=== PATIENT | female | born 1975 | race African-American/Black ===

== ENCOUNTER 2017-07-21 06:35 | Emergency (ER) | payer MEDICAID ==
[~2017-07-21] VITALS: Ht 157.5 cm; Wt 70.0 kg
[~2017-07-21 06:35] MED LIST: ATEN50TA PO; PROT40TA PO
[2017-07-21 06:43] VITALS: BP 134/80; PULSE 66; RESP 18; TEMP 98; O2SAT 100
[2017-07-21] MEDS ORDERED: ALPR.5 PO (06:51)
[2017-07-21] MEDS ORDERED: LAMO100 PO (06:51)
[2017-07-21] MEDS ORDERED: LURA40 PO (06:51)
[2017-07-21] MEDS ORDERED: ZANT150T2 PO (06:51)
[2017-07-21] MEDS ORDERED: SODIUM CHLOR 0.9% 1000 ML INJ 1,000 ML IV SCH (07:03)
--- NOTE | 2017-07-21 07:09 | PD ---
HPI Chief Complaint: Abdominal Pain Time Seen by Provider: 06:57 Travel History International Travel<30 days: No Contact w/Intl Traveler<30days: No Traveled to known affect area: No History of Present Illness HPI Patient is a 42-year-old female presents to emergency room with complaints of abdominal pain. Patient reports that for the past week, she's been having diffuse abdominal pain, reports that she initially had nausea and vomiting with the symptoms, reports that last night, she began to have diarrhea. Patient denies any fevers or chills, denies any sick contacts. Patient reports no recent travels. Patient reports that she has history of diverticulitis in the past. Patient denies any vaginal discharge or bleeding, dysuria, urinary urgency or frequency. PFSH Past Medical History Hx Anticoagulant Therapy: No ADHD: Yes Arthritis: Yes (RA) Autoimmune Disease: Yes (LUPUS) Bipolar Disorder: Yes Anxiety: Yes Depression: Yes Heart Rhythm Problems: No Cancer: Yes (DOESNT KNOW WHAT KIND SAYS NECK) Cardiac Catheterization: Yes Cardiovascular Problems: Yes ([place] 2009) High Cholesterol: No Chest Pain: No Congestive Heart Failure: No Coronary Artery Disease: Yes Diabetes: No Diminished Hearing: No Endocrine: Yes Fibromyalgia: Yes Gastrointestinal Disorders: No Genitourinary: No Hypertension: Yes Immune Disorder: Yes (LUPUS) Implanted Vascular Access Dvce: Yes Musculoskeletal: No Neurologic: No Psychiatric: Yes Respiratory: No Immunizations Current: Yes Myocardial Infarction: Yes (2009) Thyroid Disease: Yes Ulcer: Yes Tetanus Vaccination: Unknown Influenza Vaccination: Yes ?: Not Menopausal: No : 5 Para: 3 Miscarriage: 2 Ovarian Cysts: Yes Tubal Ligation: Yes Past Surgical History Abdominal Surgery: Yes (GASTRIC BYPASS) Body Medical Devices: HEART STENT Coronary Stent: Yes (X1) Hysterectomy: Yes Other Surgery: Yes (GASTRIC BYPASS) Social History Alcohol Use: No Tobacco Use: Yes Substance Use: Yes (marijuana ) Allergies-Medications (Allergen,Severity, Reaction): Coded Allergies: latex (Unverified Allergy, Severe, Anaphylaxis, 05/28/17) tramadol (Unverified Allergy, Severe, "throat closes", 05/28/17) lisinopril (Unverified Allergy, Mild, Hives, 05/28/17) metronidazole (Unverified Allergy, Mild, N&V, 05/28/17) morphine (Unverified Allergy, Mild, Seizure, 05/28/17) Reported Meds & Prescriptions Reported Meds & Active Scripts Active Percocet (Oxycodone-Acetaminophen) 5-325 mg Tab 1 Tab PO Q6H PRN Reported Latuda (Lurasidone) 40 Mg Tab 40 Mg PO DAILY Xanax (Alprazolam) 0.5 Mg Tab 0.5 Mg PO Q8H PRN Lamictal (Lamotrigine) 100 Mg Tab 100 Mg PO DAILY Zantac (Ranitidine HCl) 150 Mg Tab 150 Mg PO DAILY Atenolol 50 Mg Tab 50 Mg PO DAILY Review of Systems General / Constitutional: No: Fever Eyes: No: Visual changes HENT: No: Headaches Cardiovascular: No: Chest Pain or Discomfort Respiratory: No: Shortness of Breath Gastrointestinal: Positive: Nausea, Vomiting, Diarrhea, Abdominal Pain Genitourinary: No: Urgency, Frequency, Dysuria, Hesitancy, Pelvic Pain, Flank Pain, Dyspareunia Musculoskeletal: No: Pain Skin: No Rash Neurologic: No: Weakness Psychiatric: No: Depression Endocrine: No: Polydipsia Hematologic/Lymphatic: No: Easy Bruising Physical Exam Narrative GENERAL: Mild distress SKIN: Focused skin assessment warm/dry. HEAD: Atraumatic. Normocephalic. EYES: Pupils equal and round. No scleral icterus. No injection or drainage. ENT: No nasal bleeding or discharge. Mucous membranes pink and moist. NECK: Trachea midline. No JVD. CARDIOVASCULAR: Regular rate and rhythm. No murmur appreciated. RESPIRATORY: No accessory muscle use. Clear to auscultation. Breath sounds equal bilaterally. GASTROINTESTINAL: Abdomen soft, diffusely tender, nondistended. Hepatic and splenic margins not palpable. MUSCULOSKELETAL: No obvious deformities. No clubbing. No cyanosis. No edema. NEUROLOGICAL: Awake and alert. No obvious cranial nerve deficits. Motor grossly within normal limits. Normal speech. PSYCHIATRIC: Appropriate mood and affect; insight and judgment normal. Data Data Last Documented VS Vital Signs Date Time Temp Pulse Resp B/P (MAP) Pulse Ox O2 Delivery O2 Flow Rate FiO2 07/21/17 07:15 99 Room Air 07/21/17 07:15 64 16 128/78 (95) 07/21/17 06:43 98.0 Orders Orders Complete Blood Count With Diff (07/21/17 07:03) Comprehensive Metabolic Panel (07/21/17 07:03) Lipase (07/21/17 07:03) Prothrombin Time / Inr (Pt) (07/21/17 07:03) Act Partial Throm Time (Ptt) (07/21/17 07:03) Urinalysis - C+S If Indicated (07/21/17 07:03) Ct Abd/Pel W Iv Contrast(Rout) (07/21/17 07:03) Iv Access Insert/Monitor (07/21/17 07:03) Ecg Monitoring (07/21/17 07:03) Oximetry (07/21/17 07:03) NPO (07/21/17 07:03) Ondansetron Inj (Zofran Inj) (07/21/17 07:15) Sodium Chlor 0.9% 1000 Ml Inj (Ns 1000 M (07/21/17 07:03) Sodium Chloride 0.9% Flush (Ns Flush) (07/21/17 07:15) Ed Urine Pregnancytest Poc (07/21/17 07:03) Acetaminophen (Tylenol) (07/21/17 07:30) Oxycodone (Roxicodone) (07/21/17 07:45) Iohexol 350 Inj (Omnipaque 350 Inj) (07/21/17 10:09) Hydromorphone Pf Inj (Dilaudid Pf Inj) (07/21/17 11:15) Us Pelvis Comp W Dop Transvag (07/21/17 11:18) Labs Laboratory Tests Test 07/21/17 07:25 07/21/17 07:40 07/21/17 09:03 White Blood Count 6.6 TH/MM3 Red Blood Count 3.59 MIL/MM3 Hemoglobin 11.8 GM/DL Hematocrit 34.6 % Mean Corpuscular Volume 96.2 FL Mean Corpuscular Hemoglobin 33.0 PG Mean Corpuscular Hemoglobin Concent 34.3 % Red Cell Distribution Width 12.8 % Platelet Count 263 TH/MM3 Mean Platelet Volume 9.4 FL Neutrophils (%) (Auto) 68.9 % Lymphocytes (%) (Auto) 23.1 % Monocytes (%) (Auto) 6.6 % Eosinophils (%) (Auto) 0.2 % Basophils (%) (Auto) 1.2 % Neutrophils # (Auto) 4.6 TH/MM3 Lymphocytes # (Auto) 1.5 TH/MM3 Monocytes # (Auto) 0.4 TH/MM3 Eosinophils # (Auto) 0.0 TH/MM3 Basophils # (Auto) 0.1 TH/MM3 CBC Comment DIFF FINAL Differential Comment Prothrombin Time 10.1 SEC Prothromb Time International Ratio 0.9 RATIO Activated Partial Thromboplast Time 27.6 SEC Urine Color YELLOW Urine Turbidity CLEAR Urine pH 7.5 Urine Specific [place] 1.027 Urine Protein TRACE mg/dL Urine Glucose (UA) NEG mg/dL Urine Ketones NEG mg/dL Urine Occult Blood NEG Urine Nitrite NEG Urine Bilirubin NEG Urine Urobilinogen LESS THAN 2.0 MG/DL Urine Leukocyte Esterase NEG Urine RBC LESS THAN 1 /hpf Urine WBC 1 /hpf Urine Squamous Epithelial Cells 4 /hpf Urine Mucus FEW /lpf Microscopic Urinalysis Comment CULT NOT INDICATED Blood Urea Nitrogen 10 MG/DL Creatinine 0.59 MG/DL Random Glucose 93 MG/DL Total Protein 7.1 GM/DL Albumin 3.6 GM/DL Calcium Level 8.4 MG/DL Alkaline Phosphatase 107 U/L Aspartate Amino Transf (AST/SGOT) 18 U/L Alanine Aminotransferase (ALT/SGPT) 18 U/L Total Bilirubin 0.3 MG/DL Sodium Level 138 MEQ/L Potassium Level 4.4 MEQ/L Chloride Level 108 MEQ/L Carbon Dioxide Level 24.3 MEQ/L Anion Gap 6 MEQ/L Estimat Glomerular Filtration Rate 137 ML/MIN Lipase 912 U/L MDM Medical Decision Making Medical Screen Exam Complete: Yes Emergency Medical Condition: Yes Medical Record Reviewed: Yes Interpretation(s) Vital Signs Date Time Temp Pulse Resp B/P (MAP) Pulse Ox O2 Delivery O2 Flow Rate FiO2 07/21/17 06:43 98.0 66 18 134/80 (98) 100 Differential Diagnosis Differential includes diverticulitis, colitis, gastroenteritis, gastritis, electrolyte abnormality, UTI Narrative Course 42-year-old female who presents to emergency room with complaints of diffuse abdominal pain which has been ongoing for the past week. She reports associated nausea, vomiting and diarrhea with her symptoms. Patient with no fevers or chills. Patient was placed on a pvc monitor upon arrival to emergency room. Lab work including liver function tests, UA ordered. CT of the abdomen pelvis ordered to evaluate for possible colitis versus diverticulitis. Laboratory Tests Test 07/21/17 07:25 07/21/17 07:40 07/21/17 09:03 White Blood Count 6.6 TH/MM3 (4.0-11.0) Red Blood Count 3.59 MIL/MM3 (4.00-5.30) Hemoglobin 11.8 GM/DL (11.6-15.3) Hematocrit 34.6 % (35.0-46.0) Mean Corpuscular Volume 96.2 FL (80.0-100.0) Mean Corpuscular Hemoglobin 33.0 PG (27.0-34.0) Mean Corpuscular Hemoglobin Concent 34.3 % (32.0-36.0) Red Cell Distribution Width 12.8 % (11.6-17.2) Platelet Count 263 TH/MM3 (150-450) Mean Platelet Volume 9.4 FL (7.0-11.0) Neutrophils (%) (Auto) 68.9 % (16.0-70.0) Lymphocytes (%) (Auto) 23.1 % (9.0-44.0) Monocytes (%) (Auto) 6.6 % (0.0-8.0) Eosinophils (%) (Auto) 0.2 % (0.0-4.0) Basophils (%) (Auto) 1.2 % (0.0-2.0) Neutrophils # (Auto) 4.6 TH/MM3 (1.8-7.7) Lymphocytes # (Auto) 1.5 TH/MM3 (1.0-4.8) Monocytes # (Auto) 0.4 TH/MM3 (0-0.9) Eosinophils # (Auto) 0.0 TH/MM3 (0-0.4) Basophils # (Auto) 0.1 TH/MM3 (0-0.2) CBC Comment DIFF FINAL Differential Comment Prothrombin Time 10.1 SEC (9.8-11.6) Prothromb Time International Ratio 0.9 RATIO Activated Partial Thromboplast Time 27.6 SEC (24.3-30.1) Urine Color YELLOW (YELLW/STRAW) Urine Turbidity CLEAR (CLEAR) Urine pH 7.5 (5.0-8.5) Urine Specific [place] 1.027 (1.002-1.035) Urine Protein TRACE mg/dL (NEG-TRACE) Urine Glucose (UA) NEG mg/dL (NEG) Urine Ketones NEG mg/dL (NEG) Urine Occult Blood NEG (NEG) Urine Nitrite NEG (NEG) Urine Bilirubin NEG (NEG) Urine Urobilinogen LESS THAN 2.0 MG/DL (LESS Urine Leukocyte Esterase NEG (NEG) Urine RBC LESS THAN 1 /hpf (0-3) Urine WBC 1 /hpf (0-5) Urine Squamous Epithelial Cells 4 /hpf (0-5) Urine Mucus FEW /lpf (OCC) Microscopic Urinalysis Comment CULT NOT INDICATED Blood Urea Nitrogen 10 MG/DL (7-18) Creatinine 0.59 MG/DL (0.50-1.00) Random Glucose 93 MG/DL (74-106) Total Protein 7.1 GM/DL (6.4-8.2) Albumin 3.6 GM/DL (3.4-5.0) Calcium Level 8.4 MG/DL (8.5-10.1) Alkaline Phosphatase 107 U/L (45-117) Aspartate Amino Transf (AST/SGOT) 18 U/L (15-37) Alanine Aminotransferase (ALT/SGPT) 18 U/L (10-53) Total Bilirubin 0.3 MG/DL (0.2-1.0) Sodium Level 138 MEQ/L (136-145) Potassium Level 4.4 MEQ/L (3.5-5.1) Chloride Level 108 MEQ/L (98-107) Carbon Dioxide Level 24.3 MEQ/L (21.0-32.0) Anion Gap 6 MEQ/L (5-15) Estimat Glomerular Filtration Rate 137 ML/MIN (>89) Lipase 912 U/L (73-393) CT of the abdomen and pelvis shows a 3.7 cm probably cystic mass in the left adnexa, patient with continued pain. Patient reports no allergies to IV Dilaudid as she has tolerated this in the past, really allergy to morphine. Patient will be remedicated, pelvic ultrasound ordered to evaluate for possible ovarian torsion. Lipase is 912 - ct with no evidence of inflammation around pancreas US pelvis: Multiple cysts in the left ovary 2 of which are complex and one is simple. Right ovary is not visualized. Patient feeling much better at this time, she will follow up with her clinical support manager and will return to emergency room as needed. Copies of studies given to patient as she will need to follow up with incidental findings Diagnosis Primary Impression: Adnexal cyst Additional Impression: Abdominal pain Patient Instructions: General Instructions, Narcotic given in the ED Additional Instructions: Please provide patient with a copy of her lab work and studies at discharge Please follow up with your clinical support manager as soon as possible Return to ER if symptoms worsen Return to ER as needed Med/Other Pt SpecificInfo: Prescription(s) given Scripts Oxycodone-Acetaminophen (Percocet) 5-325 mg Tab 1 TAB PO Q6H Y for PAIN, #6 TAB 0 Refills Prov: Whit Shook DO 07/21/17 Disposition: 01 DISCHARGE HOME Condition: Stable Whit Shook DO Jul 21, 2017 07:09
[2017-07-21 07:15] VITALS: BP 128/78; PULSE 64; RESP 16; O2SAT 99
[2017-07-21] MEDS ORDERED: SODIUM CHLORIDE 0.9% FLUSH 10 ML FLUSH IV FLUSH PRN (07:15)
[2017-07-21] MEDS ORDERED: ONDANSETRON HCL 4 MG/2 ML VIAL IVP ONE (07:15)
[2017-07-21] MEDS ORDERED: ACETAMINOPHEN 325 MG TAB PO ONE (07:30)
[2017-07-21 07:38] LABS: AUTOMATED NEUTROPHIL # 4.6 TH/MM3 (1.8-7.7); BASOPHIL # 0.1 TH/MM3 (0-0.2); BASOPHIL % 1.2 % (0.0-2.0); EOSINOPHIL % 0.2 % (0.0-4.0); HEMATOCRIT 34.6 % (35.0-46.0); HEMO FLAGS DIFF FINAL; LYMPH % 23.1 % (9.0-44.0); LYMPHOCYTE # 1.5 TH/MM3 (1.0-4.8); MEAN CELL VOLUME 96.2 FL (80.0-100.0); MEAN CORPUSCULAR HGB CONC 34.3 % (32.0-36.0); MONO % 6.6 % (0.0-8.0); NEUT % 68.9 % (16.0-70.0); PLATELET COUNT 263 TH/MM3 (150-450); RED BLOOD COUNT 3.59 MIL/MM3 (4.00-5.30); RED CELL DISTRIBUTION WIDTH 12.8 % (11.6-17.2); WHITE BLOOD COUNT 6.6 TH/MM3 (4.0-11.0)
[2017-07-21 08:13] LABS: BLOOD, URINE NEG (NEG); COMMENT (UR) CULT NOT INDICATED; CULTURE IF INDICATED CULT NOT INDICATED; GLUCOSE,URINE NEG (NEG); KETONE, URINE NEG (NEG); MUCUS URINE FEW /lpf (OCC); NITRITE,URINE NEG (NEG); PH, URINE 7.5 (5.0-8.5); SQUAMOUS EPITHELIAL CELL URINE 4 /hpf (0-5); URINE COLOR YELLOW (YELLW/STRAW)
[2017-07-21 08:15] LABS: PROTHROMBIN TIME - PATIENT 10.1 SEC (9.8-11.6)
[2017-07-21 08:18] LABS: APTT (PATIENT) 27.6 SEC (24.3-30.1); INTERNATIONAL NORMALIZED RATIO 0.9 RATIO
[2017-07-21 09:36] LABS: ANION GAP 6 MEQ/L (5-15); AST (GOT) 18 U/L (15-37); BICARBONATE 24.3 MEQ/L (21.0-32.0); BLOOD UREA NITROGEN 10 MG/DL (7-18); CHLORIDE 108 MEQ/L (98-107); GLOMERULAR FILTRATION RATE 137 ML/MIN (>89); POTASSIUM 4.4 MEQ/L (3.5-5.1); SODIUM (NA) 138 MEQ/L (136-145)
[2017-07-21 09:37] LABS: ALT (GPT) 18 U/L (10-53)
[2017-07-21 09:39] LABS: ALKALINE PHOSPHATASE 107 U/L (45-117); TOTAL BILIRUBIN ADULT 0.3 MG/DL (0.2-1.0)
[2017-07-21] MEDS ORDERED: IOHEXOL 350 MG/ML 10 ML VIAL (for RAD DIAG) IVCONTRAST ONE (10:09)
--- NOTE | 2017-07-21 11:13 | RADRPT ---
EXAM DATE/TIME: 07/21/2017 09:54 [facility] COMPARISON: CT ABDOMEN & PELVIS W CONTRAST, September 03, 2016, 0:20. INDICATIONS : Lower abdominal pain. IV CONTRAST: 92 cc Omnipaque 350 (iohexol) IV ORAL CONTRAST: No oral contrast ingested. RADIATION DOSE: 7.32 CTDIvol (mGy) MEDICAL HISTORY : Cardiovascular disease. Hypertension. Lupus. SURGICAL HISTORY : Gastric bypass. Tubal ligation. Hysterectomy. ENCOUNTER: Initial ACUITY: 1 day PAIN SCALE: 5/10 LOCATION: Bilateral lower quadrant TECHNIQUE: Volumetric scanning of the abdomen and pelvis was performed. Using automated exposure control and adjustment of the mA and/or kV according to patient size, radiation dose was kept as low as reasonably achievable to obtain optimal diagnostic quality images. DICOM format image data is av ailable electronically for review and comparison. FINDINGS: Lung bases are clear. Patient has had a previous gastric bypass. Liver and spleen are free of focal defects. Gallbladder is prominent. There are no gallstones. Pancreas and adrenals unremarkable. There is symmetrical renal function. There is no evidence for stone or obstruction. Region of cecum and terminal ileum unremarkable. In the pelvis I do not see inflammatory changes. There are small cystic areas in both adnexa regions , largest on the left measuring 3.7 cm. There is no free fluid. CONCLUSION: 3.7 cm predominantly cystic mass left adnexa region. There are no inflammatory changes in the abdomen or pelvis. Timoteo Rodríguez MD FACR on July 21, 2017 at 10:55 Board Certified Radiologist. This report was verified electronically.
[2017-07-21] MEDS ORDERED: HYDROmorphone HCL PF 1 MG/ML VIAL IV PUSH ONE (11:15)
--- NOTE | 2017-07-21 12:18 | RADRPT ---
EXAM DATE/TIME: 07/21/2017 11:22 [facility] COMPARISON: CT ABDOMEN & PELVIS W CONTRAST, July 21, 2017, 9:54. INDICATIONS : Pelvic pain. MEDICAL HISTORY : Hypertension. Myocardial infarction. Thyroid disease. CAD. Ulcer. Arthritis. ADHD. Bipolar. Substance abuse. SURGICAL HISTORY : Hysterectomy. Tubal ligation. ENCOUNTER: Initial ACUITY: 1 week PAIN SCORE: 10/10 LOCATION: Bilateral pelvis MEASUREMENTS: UTERUS: Surgically absent RIGHT OVARY: Nonvisualized LEFT OVARY: 4.9 x 3.2 x 2.7 cm FINDINGS: UTERUS: The myometrium has homogeneous echotexture without mass. RIGHT OVARY: Not visualized LEFT OVARY: Multiple complex cysts measuring 2.8 and 1.4 cm in size as well as ductal cyst 1.7 cm in size MISCELLANEOUS: No free fluid. CONCLUSION: Multiple cysts in the left ovary 2 of which are complex and one is simple. Right ovar y not visualized Sandip Hughes MD on July 21, 2017 at 12:14 Board Certified Radiologist. This report was verified electronically.
[2017-07-21] MEDS ORDERED: PERC5TAB12 PO (12:53)
[2017-07-21 13:39] VITALS: RESP 18
[2017-07-21 13:40] VITALS: BP 122/71
== END 2017-07-21 14:20 | disposition home or self-care (01) ==
LOC: NEPC 06:35
DX: N83.202 Unspecified ovarian cyst, left side (principal); R10.84 Generalized abdominal pain; R11.2 Nausea with vomiting, unspecified; R19.7 Diarrhea, unspecified; I10 Essential (primary) hypertension; E07.9 Disorder of thyroid, unspecified; I25.2 Old myocardial infarction; Z72.0 Tobacco use; Z87.19 Personal history of other diseases of the digestive system; Z86.59 Personal history of other mental and behavioral disorders; Z87.39 Personal history of other diseases of the musculoskeletal system and connective tissue; Z86.2 Personal history of diseases of the blood and blood-forming organs and certain disorders involving the immune mechanism; Z86.79 Personal history of other diseases of the circulatory system
CPT/HCPCS: 74177; 76830; 76856; 80053; 81001; 83690; 84703; 85025; 85610; 85730; 93975; 96361; 96374; 96375; 99285; J1170; J2405; J7030; Q9967

== ENCOUNTER 2017-09-02 12:36 | Emergency (ER) | payer MEDICAID ==
[~2017-09-02] VITALS: Ht 160 cm; Wt 70.0 kg
[~2017-09-02 12:36] MED LIST changes: +ALPR.5 PO; +LAMO100 PO; +LURA40 PO; +PERC5TAB12 PO; -PROT40TA PO; +ZANT150T2 PO
[2017-09-02] MEDS ORDERED: LAMO25 PO (12:55)
[2017-09-02] MEDS ORDERED: LURA80 PO (12:55)
[2017-09-02] MEDS ORDERED: PRED20 PO (12:55)
[2017-09-02] MEDS ORDERED: GABA300C5 PO (12:55)
[2017-09-02] MEDS ORDERED: LAMI200T PO (12:55)
[2017-09-02] MEDS ORDERED: cogentin (12:55)
[2017-09-02] MEDS ORDERED: toradol (12:55)
[2017-09-02 12:56] VITALS: BP 131/86; PULSE 56; RESP 18; TEMP 97.7; O2SAT 100
--- NOTE | 2017-09-02 13:09 | PD ---
HPI Chief Complaint: Pain: Acute or Chronic Time Seen by Provider: 13:09 Travel History International Travel<30 days: No Contact w/Intl Traveler<30days: No Traveled to known affect area: No History of Present Illness HPI 42-year-old female with PMH of lupus, anxiety presents to the ED via EMS for evaluation of four-day history of "allover body" pain, including tightness across her chest. Described as constant, worsened by deep breathing or certain movements. She thinks she may have injured her chest muscles pushing a wheelbarrow this week. She endorses an episode of palpitations, N/V and diaphoresis just before arrival which she attributes to her anxiety. She states that she is "having a lupus flare." Patient is anxious, tangential and difficult to redirect. PFSH Past Medical History Hx Anticoagulant Therapy: No ADHD: Yes Arthritis: Yes (RA) Autoimmune Disease: Yes (LUPUS) Bipolar Disorder: Yes Anxiety: Yes Depression: Yes Heart Rhythm Problems: No Cancer: Yes (DOESNT KNOW WHAT KIND SAYS NECK) Cardiac Catheterization: Yes Cardiovascular Problems: Yes High Cholesterol: No Chest Pain: No Congestive Heart Failure: No Coronary Artery Disease: Yes Diabetes: No Diminished Hearing: No Endocrine: Yes Fibromyalgia: Yes Gastrointestinal Disorders: No Genitourinary: No Hypertension: Yes Immune Disorder: Yes (LUPUS) Implanted Vascular Access Dvce: Yes Musculoskeletal: No Neurologic: No Psychiatric: Yes Respiratory: No Immunizations Current: Yes Myocardial Infarction: Yes (2009) Thyroid Disease: Yes Ulcer: Yes ?: Not Menopausal: No : 5 Para: 3 Miscarriage: 2 Ovarian Cysts: Yes Tubal Ligation: Yes Past Surgical History Abdominal Surgery: Yes (GASTRIC BYPASS) Body Medical Devices: HEART STENT Coronary Stent: Yes (X1) Hysterectomy: Yes Social History Alcohol Use: No Tobacco Use: Yes Substance Use: Yes (marijuana ) Allergies-Medications (Allergen,Severity, Reaction): Coded Allergies: latex (Unverified Allergy, Severe, Anaphylaxis, 05/28/17) tramadol (Unverified Allergy, Severe, "throat closes", 05/28/17) lisinopril (Unverified Allergy, Mild, Hives, 05/28/17) metronidazole (Unverified Allergy, Mild, N&V, 05/28/17) morphine (Unverified Allergy, Mild, Seizure, 8/16/17) Reported Meds & Prescriptions Reported Meds & Active Scripts Active Oxycodone-Acetaminophen 5-325 (Oxycodone HCl/Acetaminophen) 5 Mg-325 Mg Tablet 5 Mg PO Q6HR Reported [toradol ] Q8HR NEB PRN Prednisone 20 Mg Tab Unknown Dose PO DIRECTED 40 MG twice a day x 3 days, then 20 MG daily x 3 days, then 10 MG daily x 3 days [cogentin ] Unknown Dose DAILY Gabapentin 300 Mg Cap 300 Mg PO TID Lamictal (Lamotrigine) 200 Mg Tab 200 Mg PO DAILY Lamictal (Lamotrigine) 25 Mg Tab 25 Mg PO DAILY Latuda (Lurasidone) 80 Mg Tab 80 Mg PO DAILY Xanax (Alprazolam) 0.5 Mg Tab 0.5 Mg PO Q8H PRN Zantac (Ranitidine HCl) 150 Mg Tab 150 Mg PO DAILY Atenolol 50 Mg Tab 50 Mg PO DAILY Review of Systems Except as stated in HPI: all other systems reviewed are Neg Physical Exam Narrative GENERAL: Well-nourished, well-developed patient. SKIN: Focused skin assessment warm/dry. HEAD: Normocephalic. EYES: No scleral icterus. No injection or drainage. NECK: Supple, trachea midline. No JVD or lymphadenopathy. CARDIOVASCULAR: Regular rate and rhythm without murmurs, gallops, or rubs. CHEST: Tender to palpation in the proximal sternal area. Otherwise nontender throughout without deformity or crepitus. RESPIRATORY: Breath sounds equal bilaterally. No accessory muscle use. GASTROINTESTINAL: Abdomen soft, non-tender, nondistended. MUSCULOSKELETAL: No cyanosis, or edema. BACK: Nontender without obvious deformity. No CVA tenderness. Data Data Last Documented VS Vital Signs Date Time Temp Pulse Resp B/P (MAP) Pulse Ox O2 Delivery O2 Flow Rate FiO2 09/02/17 12:56 97.7 56 18 131/86 (101) 100 Orders Orders Electrocardiogram (09/02/17 13:18) Ckmb (Isoenzyme) Profile (09/02/17 13:18) Complete Blood Count With Diff (09/02/17 13:18) Comprehensive Metabolic Panel (09/02/17 13:18) Magnesium (Mg) (09/02/17 13:18) Prothrombin Time / Inr (Pt) (09/02/17 13:18) Act Partial Throm Time (Ptt) (09/02/17 13:18) Troponin I (09/02/17 13:18) Chest, Single Ap (09/02/17 13:18) Ecg Monitoring (09/02/17 13:18) Bilateral Bp Monitoring (09/02/17 13:18) Iv Access Insert/Monitor (09/02/17 13:18) Oximetry (09/02/17 13:18) Sodium Chloride 0.9% Flush (Ns Flush) (09/02/17 13:30) Ed Urine Pregnancytest Poc (09/02/17 13:18) Acetamin-Hydrocod 325-7.5 Mg ([place] 7.5 (09/02/17 13:30) CKMB (09/02/17 13:32) CKMB% (09/02/17 13:32) Ed Discharge Order (09/02/17 14:51) Labs Laboratory Tests Test 09/02/17 13:32 White Blood Count 7.4 TH/MM3 Red Blood Count 3.96 MIL/MM3 Hemoglobin 13.2 GM/DL Hematocrit 38.7 % Mean Corpuscular Volume 97.7 FL Mean Corpuscular Hemoglobin 33.3 PG Mean Corpuscular Hemoglobin Concent 34.1 % Red Cell Distribution Width 13.1 % Platelet Count 242 TH/MM3 Mean Platelet Volume 9.8 FL Neutrophils (%) (Auto) 93.6 % Lymphocytes (%) (Auto) 5.0 % Monocytes (%) (Auto) 1.1 % Eosinophils (%) (Auto) 0.0 % Basophils (%) (Auto) 0.3 % Neutrophils # (Auto) 6.9 TH/MM3 Lymphocytes # (Auto) 0.4 TH/MM3 Monocytes # (Auto) 0.1 TH/MM3 Eosinophils # (Auto) 0.0 TH/MM3 Basophils # (Auto) 0.0 TH/MM3 CBC Comment DIFF FINAL Differential Comment Prothrombin Time 10.3 SEC Prothromb Time International Ratio 0.9 RATIO Activated Partial Thromboplast Time 29.0 SEC Blood Urea Nitrogen 25 MG/DL Creatinine 0.86 MG/DL Random Glucose 105 MG/DL Total Protein 9.1 GM/DL Albumin 4.4 GM/DL Calcium Level 9.7 MG/DL Magnesium Level 2.6 MG/DL Alkaline Phosphatase 102 U/L Aspartate Amino Transf (AST/SGOT) 22 U/L Alanine Aminotransferase (ALT/SGPT) 18 U/L Total Bilirubin 0.7 MG/DL Sodium Level 134 MEQ/L Potassium Level 4.3 MEQ/L Chloride Level 104 MEQ/L Carbon Dioxide Level 24.3 MEQ/L Anion Gap 6 MEQ/L Estimat Glomerular Filtration Rate 88 ML/MIN Total Creatine Kinase 291 U/L Creatine Kinase MB 2.3 NG/ML Creatine Kinase MB % 0.8 % Troponin I LESS THAN 0.02 NG/ML MDM Medical Decision Making Medical Screen Exam Complete: Yes Emergency Medical Condition: Yes Differential Diagnosis Chronic pain versus musculoskeletal pain versus anxiety versus less likely ACS versus other Narrative Course 42-year-old female with PMH of lupus, anxiety presents to the ED via EMS for evaluation of four-day history of "allover body" pain, including tightness across her chest. Described as constant, worsened by deep breathing or certain movements. She thinks she may have injured her chest muscles pushing a wheelbarrow this week. She endorses an episode of palpitations, N/V and diaphoresis just before arrival which she attributes to her anxiety. She states that she is "having a lupus flare." Patient is anxious, tangential and difficult to redirect. Vitals reviewed. Physical exam is reassuring. There is some tenderness to palpation over proximal aspect of the sternum but otherwise unremarkable. Patient was administered by mouth Lortab. EKG rate 51, sinus bradycardia. NC interval 154, QRS 81, QTC 404. Normal axis. Inferior T waves. Reviewed by Dr. Brown. Cardiac enzymes negative 1. CXR: No acute abnormality per radiology read. No concerning abnormalities of CBC, CMP, coags. I doubt this cardiac in nature. I think this is due to a combination of chronic pain with muscle skeletal pain and anxiety. On recheck the patient reports improvement of her pain. She is requesting a short course of pain medications until she can see her primary care provider. She was provided with #10 5 mg Lortab. She is instructed to follow-up with her primary care provider and service line bus cleaner. She indicated understanding of instructions and is agreeable to the care plan. She is stable and discharged home. Diagnosis Primary Impression: Anxiety disorder Qualified Codes: F41.9 - Anxiety disorder, unspecified Additional Impression: Chronic pain Qualified Codes: G89.29 - Other chronic pain Referrals: [facility] Primary Care Physician Patient Instructions: Chronic Pain (ED), General Instructions Additional Instructions: Rest, hydrate. Return to normal, gentle activity as tolerated. Follow-up with your primary care provider. Return to the ED for any urgent or emergent medical condition. Med/Other Pt SpecificInfo: Prescription(s) given Scripts Oxycodone HCl/Acetaminophen (Oxycodone-Acetaminophen 5-325) 5 Mg-325 Mg Tablet 5 MG PO Q6HR for Pain Management, #10 Prov: Micheline Brown MD 09/02/17 Disposition: 01 DISCHARGE HOME Condition: Stable Paula Matta Sep 02, 2017 13:09
[2017-09-02] MEDS ORDERED: SODIUM CHLORIDE 0.9% FLUSH 10 ML FLUSH IVF PRN (13:30)
[2017-09-02] MEDS ORDERED: ACETAMINOPHEN/HYDROcodone 325 MG/7.5 MG TAB PO ONE (13:30)
[2017-09-02 13:54] LABS: AUTOMATED NEUTROPHIL # 6.9 TH/MM3 (1.8-7.7); BASOPHIL % 0.3 % (0.0-2.0); HEMATOCRIT 38.7 % (35.0-46.0); HEMO FLAGS DIFF FINAL; LYMPHOCYTE # 0.4 TH/MM3 (1.0-4.8); MEAN CELL VOLUME 97.7 FL (80.0-100.0); MEAN CORPUSCULAR HEMOGLOBIN 33.3 PG (27.0-34.0); MEAN CORPUSCULAR HGB CONC 34.1 % (32.0-36.0); MONO % 1.1 % (0.0-8.0); NEUT % 93.6 % (16.0-70.0); PLATELET COUNT 242 TH/MM3 (150-450); RED BLOOD COUNT 3.96 MIL/MM3 (4.00-5.30); RED CELL DISTRIBUTION WIDTH 13.1 % (11.6-17.2); WHITE BLOOD COUNT 7.4 TH/MM3 (4.0-11.0)
[2017-09-02 14:04] LABS: INTERNATIONAL NORMALIZED RATIO 0.9 RATIO; PROTHROMBIN TIME - PATIENT 10.3 SEC (9.8-11.6)
[2017-09-02 14:12] LABS: ALT (GPT) 18 U/L (10-53); ANION GAP 6 MEQ/L (5-15); AST (GOT) 22 U/L (15-37); BICARBONATE 24.3 MEQ/L (21.0-32.0); BLOOD UREA NITROGEN 25 MG/DL (7-18); CHLORIDE 104 MEQ/L (98-107); GLOMERULAR FILTRATION RATE 88 ML/MIN (>89); MAGNESIUM 2.6 MG/DL (1.5-2.5); POTASSIUM 4.3 MEQ/L (3.5-5.1); SODIUM (NA) 134 MEQ/L (136-145)
--- NOTE | 2017-09-02 14:12 | RADRPT ---
EXAM DATE/TIME: 09/02/2017 12:48 [facility] COMPARISON: CHEST SINGLE AP, October 09, 2016, 23:31. INDICATIONS : Lupus crisis, chest pains, body aches. MEDICAL HISTORY : Lupus, Fibromyalgia, Heart mumur. SURGICAL HISTORY : None. ENCOUNTER: Initial ACUITY: 1 day PAIN SCORE: 7/10 LOCATION: Bilateral chest FINDINGS: A single view of the chest demonstrates the lungs to be symmetrically aerated without evidence of mas s, infiltrate or effusion. Cardiac silhouette is in the upper limits of normal to borderline enlarged . Osseous structures are intact. CONCLUSION: 1. No acute abnormality or significant interval change. Julius Schmid MD on September 02, 2017 at 14:09 Board Certified Radiologist. This report was verified electronically.
[2017-09-02 14:17] LABS: ALKALINE PHOSPHATASE 102 U/L (45-117); CREATINE KINASE 291 U/L (26-192); TOTAL BILIRUBIN ADULT 0.7 MG/DL (0.2-1.0)
[2017-09-02 14:29] LABS: CKMB 2.3 NG/ML (0.5-3.6)
[2017-09-02] MEDS ORDERED: OXYC1TAB63 PO (14:51)
--- NOTE | 2017-09-03 10:06 | EKG ---
Date Performed: 09/02/2017 Time Performed: 13:07:35 PTAGE: 42 years EKG: SINUS BRADYCARDIA BORDERLINE ECG NO PREVIOUS TRACING DOCTOR: Zohaib Hopkins Interpretating Date/Time 09/03/2017 10:04:28
[2017-09-05] MEDS ORDERED: KETO10 PO (17:36)
== END 2017-09-02 16:48 | disposition home or self-care (01) ==
LOC: NEPC 12:36
DX: F41.9 Anxiety disorder, unspecified (principal); G89.29 Other chronic pain; R00.1 Bradycardia, unspecified; R11.2 Nausea with vomiting, unspecified; R00.2 Palpitations; M32.9 Systemic lupus erythematosus, unspecified; M79.7 Fibromyalgia; I10 Essential (primary) hypertension; M06.9 Rheumatoid arthritis, unspecified
CPT/HCPCS: 71010; 80053; 82550; 82552; 83735; 84484; 84703; 85025; 85610; 85730; 93005; 99285

== ENCOUNTER 2017-10-27 05:16 | Emergency (ER) | payer MEDICAID ==
[~2017-10-27 05:16] MED LIST changes: +GABA300C5 PO; +KETO10 PO; +LAMI200T PO; -LAMO100 PO; +LAMO25 PO; -LURA40 PO; +LURA80 PO; +OXYC1TAB63 PO; -PERC5TAB12 PO; +PRED20 PO; +cogentin
[2017-10-27 05:27] VITALS: BP 139/88; PULSE 57; RESP 16; TEMP 97.7; O2SAT 100
--- NOTE | 2017-10-27 06:32 | PD ---
HPI Chief Complaint: Medical Clearance Time Seen by Provider: 06:24 Travel History International Travel<30 days: No Contact w/Intl Traveler<30days: No Traveled to known affect area: No History of Present Illness HPI 42-year-old female presents to the emergency department by EMS transport as she had no available transportation for evaluation of anxiety depression. Patient has known history of anxiety depression. Patient reports that her psychiatrist Dr. Evans is out of town and prior to leaving to go out of town and recommended that she discontinue all of her psychiatric medications except her Xanax. Since being on Xanax as her sole antianxiety medication and she has noted that she is not adequately controlled as far as her anxiety depression are concerned. Patient denies any suicidal or homicidal ideation she is just aware that she cannot handle the stresses at home and so she presents now to see if she can get some help. Patient has no plan to harm herself has no plan to harm others and again does not want to harm herself or others. Patient's had no fever chills nausea vomiting shortness of breath back pain abdominal pain flank pain or extremity numbness tingling or weakness or pain. Patient has had some intermittent sweats and chest pain. Patient does not have history of dyslipidemia or diabetes. Patient does report history of CAD with stent placement in 2009 had a normal stress test 2 years ago in 2014. Patient does have history of lupus and states that she does not think that that is well controlled at this time either although she does reflect that most likely is due to her mental health condition not being well-controlled. Patient rates her pain 0/10 intensity. PFSH Past Medical History Narrative Medical Nursing notes reviewed Hx Anticoagulant Therapy: No ADHD: Yes Arthritis: Yes (RA) Autoimmune Disease: Yes (LUPUS) Bipolar Disorder: Yes Anxiety: Yes Depression: Yes Heart Rhythm Problems: No Cancer: Yes (DOESNT KNOW WHAT KIND SAYS NECK) Cardiac Catheterization: Yes Cardiovascular Problems: Yes High Cholesterol: No Chest Pain: No Congestive Heart Failure: No Coronary Artery Disease: Yes Diabetes: No Diminished Hearing: No Endocrine: Yes Fibromyalgia: Yes Gastrointestinal Disorders: No Genitourinary: No Hypertension: Yes Immune Disorder: Yes (LUPUS) Implanted Vascular Access Dvce: Yes Musculoskeletal: No Neurologic: No Psychiatric: Yes Respiratory: No Immunizations Current: Yes Myocardial Infarction: Yes (2009) Thyroid Disease: Yes Ulcer: Yes ?: Not Menopausal: No : 5 Para: 3 Miscarriage: 2 Ovarian Cysts: Yes Tubal Ligation: Yes Past Surgical History Abdominal Surgery: Yes (GASTRIC BYPASS) Body Medical Devices: HEART STENT Coronary Stent: Yes (X1) Hysterectomy: Yes Social History Alcohol Use: No Tobacco Use: Yes Substance Use: Yes (marijuana ) Allergies-Medications (Allergen,Severity, Reaction): Coded Allergies: latex (Unverified Allergy, Severe, Anaphylaxis, 05/28/17) tramadol (Unverified Allergy, Severe, "throat closes", 05/28/17) lisinopril (Unverified Allergy, Mild, Hives, 05/28/17) metronidazole (Unverified Allergy, Mild, N&V, 05/28/17) morphine (Unverified Allergy, Mild, Seizure, 05/28/17) Reported Meds & Prescriptions Reported Meds & Active Scripts Active Oxycodone-Acetaminophen 5-325 (Oxycodone HCl/Acetaminophen) 5 Mg-325 Mg Tablet 5 Mg PO Q6HR Reported Ketorolac (Ketorolac Tromethamine) Unknown Strength Tab 1 Tab PO Q8HR PRN [cogentin ] Unknown Dose DAILY Gabapentin 300 Mg Cap 300 Mg PO TID Lamictal (Lamotrigine) 200 Mg Tab 200 Mg PO DAILY Lamictal (Lamotrigine) 25 Mg Tab 25 Mg PO DAILY Latuda (Lurasidone) 80 Mg Tab 80 Mg PO DAILY Xanax (Alprazolam) 0.5 Mg Tab 0.5 Mg PO Q8H PRN Atenolol 50 Mg Tab 50 Mg PO DAILY Review of Systems Except as stated in HPI: all other systems reviewed are Neg Physical Exam Narrative GENERAL: Well-developed well-nourished female in no acute distress no respiratory distress SKIN: Warm and dry. HEAD: Normocephalic. EYES: No scleral icterus. No injection or drainage. NECK: Supple, trachea midline. No JVD or lymphadenopathy. CARDIOVASCULAR: Regular rate and rhythm without murmurs, gallops, or rubs. RESPIRATORY: Breath sounds equal bilaterally. No accessory muscle use. GASTROINTESTINAL: Abdomen soft, non-tender, nondistended. MUSCULOSKELETAL: No cyanosis, or edema. BACK: Nontender without obvious deformity. No CVA tenderness. Data Data Last Documented VS Vital Signs Date Time Temp Pulse Resp B/P (MAP) Pulse Ox O2 Delivery O2 Flow Rate FiO2 10/27/17 05:27 97.7 57 16 139/88 (105) 100 MDM Medical Decision Making Medical Screen Exam Complete: Yes Emergency Medical Condition: Yes Medical Record Reviewed: Yes Differential Diagnosis Mood disorder, bipolar disorder, anxiety depression, schizophrenia, exacerbation lupus, chest pain, atypical chest pain, ACS, [place] Narrative Course Patient was on youth nutritional monitor EKG ordered along with troponin CBC metabolic panel TSH urine drug screen [id number] hCG and psych screen Patient denies any concerns or complaint at this time although tearful because she is concerned that even though she is Here voluntarily someone want a Berman act her but she is adamant she does not want to harm herself or her mother she is just here to get assistance because she does not have access to her own mental health provider. Patient denies any pain at this time discomfort 0 10 in intensity. Patient states the discomfort that she's had intermittently has not been typical of her previous episode of chest pain. Patient is a tobacco smoker. Patient does admit to marijuana use. Patient does occasionally drink alcohol. Diagnosis Primary Impression: Bipolar disorder, mixed Jenae Thurman MD Oct 27, 2017 06:32
--- NOTE | 2017-10-27 06:59 | PD ---
Physical Exam Date Seen by Provider: Oct 27, 2017 Time Seen by Provider: 06:58 Narrative The patient is a 42-year-old female was initially evaluated by the previous physician, Dr. Thurman. Please refer to the initial history, physical, diagnostic evaluation, treatment modality plan. The patient was signed out at 7 AM with laboratory evaluation and psychiatric evaluation pending. Data Data Last Documented VS Vital Signs Date Time Temp Pulse Resp B/P (MAP) Pulse Ox O2 Delivery O2 Flow Rate FiO2 10/27/17 05:27 97.7 57 16 139/88 (105) 100 Orders Orders Complete Blood Count With Diff (10/27/17 06:24) Comprehensive Metabolic Panel (10/27/17 06:24) Thyroid Stimulating Hormone (10/27/17 06:24) Urinalysis - C+S If Indicated (10/27/17 06:24) Ed Urine Pregnancytest Poc (10/27/17 06:24) Electrocardiogram (10/27/17 06:24) Psych Screen (10/27/17 06:24) Drug Screen, Random Urine (10/27/17 06:24) Troponin I (10/27/17 06:24) Labs Laboratory Tests Test 10/27/17 06:30 White Blood Count 4.4 TH/MM3 Red Blood Count 3.71 MIL/MM3 Hemoglobin 12.5 GM/DL Hematocrit 35.9 % Mean Corpuscular Volume 96.9 FL Mean Corpuscular Hemoglobin 33.9 PG Mean Corpuscular Hemoglobin Concent 34.9 % Red Cell Distribution Width 13.8 % Platelet Count 279 TH/MM3 Mean Platelet Volume 9.2 FL Neutrophils (%) (Auto) 56.3 % Lymphocytes (%) (Auto) 33.4 % Monocytes (%) (Auto) 8.6 % Eosinophils (%) (Auto) 0.7 % Basophils (%) (Auto) 1.0 % Neutrophils # (Auto) 2.5 TH/MM3 Lymphocytes # (Auto) 1.5 TH/MM3 Monocytes # (Auto) 0.4 TH/MM3 Eosinophils # (Auto) 0.0 TH/MM3 Basophils # (Auto) 0.0 TH/MM3 CBC Comment DIFF FINAL Differential Comment Blood Urea Nitrogen 12 MG/DL Creatinine 0.75 MG/DL Random Glucose 82 MG/DL Total Protein 7.9 GM/DL Albumin 4.1 GM/DL Calcium Level 9.5 MG/DL Alkaline Phosphatase 84 U/L Aspartate Amino Transf (AST/SGOT) 31 U/L Alanine Aminotransferase (ALT/SGPT) 40 U/L Total Bilirubin 0.9 MG/DL Sodium Level 139 MEQ/L Potassium Level 4.4 MEQ/L Chloride Level 105 MEQ/L Carbon Dioxide Level 27.3 MEQ/L Anion Gap 7 MEQ/L Estimat Glomerular Filtration Rate 104 ML/MIN Troponin I LESS THAN 0.02 NG/ML Thyroid Stimulating Hormone 3rd Gen 0.488 uIU/ML [facility] Medical Record Reviewed: Yes Supervised Visit with RICKY: No Interpretation(s) Laboratory Tests Test 10/27/17 06:30 White Blood Count 4.4 TH/MM3 Red Blood Count 3.71 MIL/MM3 Hemoglobin 12.5 GM/DL Hematocrit 35.9 % Mean Corpuscular Volume 96.9 FL Mean Corpuscular Hemoglobin 33.9 PG Mean Corpuscular Hemoglobin Concent 34.9 % Red Cell Distribution Width 13.8 % Platelet Count 279 TH/MM3 Mean Platelet Volume 9.2 FL Neutrophils (%) (Auto) 56.3 % Lymphocytes (%) (Auto) 33.4 % Monocytes (%) (Auto) 8.6 % Eosinophils (%) (Auto) 0.7 % Basophils (%) (Auto) 1.0 % Neutrophils # (Auto) 2.5 TH/MM3 Lymphocytes # (Auto) 1.5 TH/MM3 Monocytes # (Auto) 0.4 TH/MM3 Eosinophils # (Auto) 0.0 TH/MM3 Basophils # (Auto) 0.0 TH/MM3 CBC Comment DIFF FINAL Differential Comment Blood Urea Nitrogen 12 MG/DL Creatinine 0.75 MG/DL Random Glucose 82 MG/DL Total Protein 7.9 GM/DL Albumin 4.1 GM/DL Calcium Level 9.5 MG/DL Alkaline Phosphatase 84 U/L Aspartate Amino Transf (AST/SGOT) 31 U/L Alanine Aminotransferase (ALT/SGPT) 40 U/L Total Bilirubin 0.9 MG/DL Sodium Level 139 MEQ/L Potassium Level 4.4 MEQ/L Chloride Level 105 MEQ/L Carbon Dioxide Level 27.3 MEQ/L Anion Gap 7 MEQ/L Estimat Glomerular Filtration Rate 104 ML/MIN Troponin I LESS THAN 0.02 NG/ML Thyroid Stimulating Hormone 3rd Gen 0.488 uIU/ML Differential Diagnosis Differential diagnosis includes anxiety, panic disorder, depressive disorder NOS , bipolar affective disorder, schizoaffective disorder, medication side effect. Narrative Course The patient is a 42-year-old female was initially evaluated by the previous physician. Please refer to initial history, physical, diagnostic evaluation, treatment modality plan. Patient was signed out at 7 AM with laboratory evaluation and psychiatric evaluation pending. Patient's laboratory evaluation was unremarkable. TSH and troponin are within normal limits. The patient is medically clear to be evaluated by psychiatry. Disposition as per psych. Diagnosis Primary Impression: Bipolar disorder, mixed Condition: Stable Sushant Mcrae MD Oct 27, 2017 06:59
[2017-10-27 07:00] LABS: AUTOMATED NEUTROPHIL # 2.5 TH/MM3 (1.8-7.7); EOSINOPHIL % 0.7 % (0.0-4.0); HEMATOCRIT 35.9 % (35.0-46.0); HEMOGLOBIN 12.5 GM/DL (11.6-15.3); LYMPH % 33.4 % (9.0-44.0); LYMPHOCYTE # 1.5 TH/MM3 (1.0-4.8); MEAN CELL VOLUME 96.9 FL (80.0-100.0); MEAN CORPUSCULAR HEMOGLOBIN 33.9 PG (27.0-34.0); MEAN CORPUSCULAR HGB CONC 34.9 % (32.0-36.0); MEAN PLATELET VOLUME 9.2 FL (7.0-11.0); MONO % 8.6 % (0.0-8.0); MONOCYTE # 0.4 TH/MM3 (0-0.9); NEUT % 56.3 % (16.0-70.0); PLATELET COUNT 279 TH/MM3 (150-450); RED BLOOD COUNT 3.71 MIL/MM3 (4.00-5.30); RED CELL DISTRIBUTION WIDTH 13.8 % (11.6-17.2); WHITE BLOOD COUNT 4.4 TH/MM3 (4.0-11.0)
[2017-10-27 07:19] LABS: ALT (GPT) 40 U/L (10-53)
[2017-10-27 07:28] LABS: ALBUMIN 4.1 GM/DL (3.4-5.0); ALKALINE PHOSPHATASE 84 U/L (45-117); AST (GOT) 31 U/L (15-37); BICARBONATE 27.3 MEQ/L (21.0-32.0); BLOOD UREA NITROGEN 12 MG/DL (7-18); CALCIUM 9.5 MG/DL (8.5-10.1); CHLORIDE 105 MEQ/L (98-107); CREATININE 0.75 MG/DL (0.50-1.00); GLOMERULAR FILTRATION RATE 104 ML/MIN (>89); GLUCOSE,RANDOM 82 MG/DL (74-106); SODIUM (NA) 139 MEQ/L (136-145); TOTAL BILIRUBIN ADULT 0.9 MG/DL (0.2-1.0); TOTAL PROTEIN 7.9 GM/DL (6.4-8.2); TROPONIN I LESS THAN 0.02 NG/ML (0.02-0.05)
[2017-10-27 08:48] VITALS: BP 141/65; PULSE 77; RESP 18; O2SAT 100
[2017-10-27 11:10] LABS: BILIRUBIN, URINE NEG (NEG); BLOOD, URINE NEG (NEG); GLUCOSE,URINE NEG (NEG); KETONE, URINE TRACE mg/dL (NEG); MUCUS URINE MANY /lpf (OCC); NITRITE,URINE NEG (NEG); SQUAMOUS EPITHELIAL CELL URINE 3 /hpf (0-5); URINE COLOR YELLOW (YELLW/STRAW); URINE LEUKOCYTE ESTERASE NEG (NEG)
[2017-10-27 12:51] VITALS: BP 135/63; PULSE 60; RESP 16; TEMP 98.9; O2SAT 100
[2017-10-27] MEDS ORDERED: POLY17S PO (13:39)
[2017-10-27] MEDS ORDERED: FOLI1TAB6 PO (13:44)
[2017-10-27] MEDS ORDERED: HYDR200T3 PO (13:45)
[2017-10-27] MEDS ORDERED: Methotrexate IM (13:49)
[2017-10-27] MEDS ORDERED: PANT40TA3 PO (14:00)
--- NOTE | 2017-10-27 15:27 | PD ---
Physical Exam Date Seen by Provider: Oct 27, 2017 Narrative 42y female presented to the ED voluntarily for evaluation of anxiety and depression. Pt denies SI/HI currently. Denies illicit drug use. She is very anxious. Vital signs stable, although elevated per patient. Physical exam findings consistent with an anxious female in mild distress. Patient administered atenolol 50mg for her chronic hypertension as she has been in the ED for many hours and has not taken her home medication. In addition, pt requested this medication. Alprazolam for anxiety as she has taken this previously. Laboratory Tests Test 10/27/17 06:30 10/27/17 10:44 White Blood Count 4.4 TH/MM3 Red Blood Count 3.71 MIL/MM3 Hemoglobin 12.5 GM/DL Hematocrit 35.9 % Mean Corpuscular Volume 96.9 FL Mean Corpuscular Hemoglobin 33.9 PG Mean Corpuscular Hemoglobin Concent 34.9 % Red Cell Distribution Width 13.8 % Platelet Count 279 TH/MM3 Mean Platelet Volume 9.2 FL Neutrophils (%) (Auto) 56.3 % Lymphocytes (%) (Auto) 33.4 % Monocytes (%) (Auto) 8.6 % Eosinophils (%) (Auto) 0.7 % Basophils (%) (Auto) 1.0 % Neutrophils # (Auto) 2.5 TH/MM3 Lymphocytes # (Auto) 1.5 TH/MM3 Monocytes # (Auto) 0.4 TH/MM3 Eosinophils # (Auto) 0.0 TH/MM3 Basophils # (Auto) 0.0 TH/MM3 CBC Comment DIFF FINAL Differential Comment Blood Urea Nitrogen 12 MG/DL Creatinine 0.75 MG/DL Random Glucose 82 MG/DL Total Protein 7.9 GM/DL Albumin 4.1 GM/DL Calcium Level 9.5 MG/DL Alkaline Phosphatase 84 U/L Aspartate Amino Transf (AST/SGOT) 31 U/L Alanine Aminotransferase (ALT/SGPT) 40 U/L Total Bilirubin 0.9 MG/DL Sodium Level 139 MEQ/L Potassium Level 4.4 MEQ/L Chloride Level 105 MEQ/L Carbon Dioxide Level 27.3 MEQ/L Anion Gap 7 MEQ/L Estimat Glomerular Filtration Rate 104 ML/MIN Troponin I LESS THAN 0.02 NG/ML Thyroid Stimulating Hormone 3rd Gen 0.488 uIU/ML Urine Color YELLOW Urine Turbidity CLEAR Urine pH 6.0 Urine Specific [place] 1.025 Urine Protein 30 mg/dL Urine Glucose (UA) NEG mg/dL Urine Ketones TRACE mg/dL Urine Occult Blood NEG Urine Nitrite NEG Urine Bilirubin NEG Urine Urobilinogen LESS THAN 2.0 MG/DL Urine Leukocyte Esterase NEG Urine RBC 1 /hpf Urine WBC 2 /hpf Urine Squamous Epithelial Cells 3 /hpf Urine Mucus MANY /lpf Microscopic Urinalysis Comment CULT NOT INDICATED Urine Opiates Screen NEG Urine Barbiturates Screen NEG Urine Amphetamines Screen NEG Urine Benzodiazepines Screen POS Urine Cocaine Screen NEG Urine Cannabinoids Screen POS Labs reviewed and were stable. She denies any other complaints today. Pt does not want to be in the emergency department any longer any longer and will follow up as an outpatient. We discussed the possibility of her staying for evaluation and she does not want to stay. Resources were given to patient for outpatient evaluation. Please see the previous providers' notes as well regarding this patient. Data Data Last Documented VS Vital Signs Date Time Temp Pulse Resp B/P (MAP) Pulse Ox O2 Delivery O2 Flow Rate FiO2 10/27/17 17:30 10/27/17 16:59 98.9 76 16 99 Room Air Orders Orders Complete Blood Count With Diff (10/27/17 06:24) Comprehensive Metabolic Panel (10/27/17 06:24) Thyroid Stimulating Hormone (10/27/17 06:24) Urinalysis - C+S If Indicated (10/27/17 06:24) Ed Urine Pregnancytest Poc (10/27/17 06:24) Electrocardiogram (10/27/17 06:24) Psych Screen (10/27/17 06:24) Drug Screen, Random Urine (10/27/17 06:24) Troponin I (10/27/17 06:24) Atenolol (Tenormin) (10/27/17 15:45) Alprazolam (Xanax) (10/27/17 15:45) Ed Discharge Order (10/27/17 16:54) Labs Laboratory Tests Test 10/27/17 06:30 10/27/17 10:44 White Blood Count 4.4 TH/MM3 Red Blood Count 3.71 MIL/MM3 Hemoglobin 12.5 GM/DL Hematocrit 35.9 % Mean Corpuscular Volume 96.9 FL Mean Corpuscular Hemoglobin 33.9 PG Mean Corpuscular Hemoglobin Concent 34.9 % Red Cell Distribution Width 13.8 % Platelet Count 279 TH/MM3 Mean Platelet Volume 9.2 FL Neutrophils (%) (Auto) 56.3 % Lymphocytes (%) (Auto) 33.4 % Monocytes (%) (Auto) 8.6 % Eosinophils (%) (Auto) 0.7 % Basophils (%) (Auto) 1.0 % Neutrophils # (Auto) 2.5 TH/MM3 Lymphocytes # (Auto) 1.5 TH/MM3 Monocytes # (Auto) 0.4 TH/MM3 Eosinophils # (Auto) 0.0 TH/MM3 Basophils # (Auto) 0.0 TH/MM3 CBC Comment DIFF FINAL Differential Comment Blood Urea Nitrogen 12 MG/DL Creatinine 0.75 MG/DL Random Glucose 82 MG/DL Total Protein 7.9 GM/DL Albumin 4.1 GM/DL Calcium Level 9.5 MG/DL Alkaline Phosphatase 84 U/L Aspartate Amino Transf (AST/SGOT) 31 U/L Alanine Aminotransferase (ALT/SGPT) 40 U/L Total Bilirubin 0.9 MG/DL Sodium Level 139 MEQ/L Potassium Level 4.4 MEQ/L Chloride Level 105 MEQ/L Carbon Dioxide Level 27.3 MEQ/L Anion Gap 7 MEQ/L Estimat Glomerular Filtration Rate 104 ML/MIN Troponin I LESS THAN 0.02 NG/ML Thyroid Stimulating Hormone 3rd Gen 0.488 uIU/ML Urine Color YELLOW Urine Turbidity CLEAR Urine pH 6.0 Urine Specific [place] 1.025 Urine Protein 30 mg/dL Urine Glucose (UA) NEG mg/dL Urine Ketones TRACE mg/dL Urine Occult Blood NEG Urine Nitrite NEG Urine Bilirubin NEG Urine Urobilinogen LESS THAN 2.0 MG/DL Urine Leukocyte Esterase NEG Urine RBC 1 /hpf Urine WBC 2 /hpf Urine Squamous Epithelial Cells 3 /hpf Urine Mucus MANY /lpf Microscopic Urinalysis Comment CULT NOT INDICATED Urine Opiates Screen NEG Urine Barbiturates Screen NEG Urine Amphetamines Screen NEG Urine Benzodiazepines Screen POS Urine Cocaine Screen NEG Urine Cannabinoids Screen POS MDM Supervised Visit with RICKY: No Diagnosis Primary Impression: Bipolar disorder, mixed Condition: Stable Sallie Polk Oct 27, 2017 15:27
[2017-10-27 15:44] VITALS: BP 162/83; PULSE 77; RESP 16; TEMP 97.6; O2SAT 95
[2017-10-27] MEDS ORDERED: ALPRAZolam 0.5 MG TAB PO ONE (15:45)
[2017-10-27] MEDS ORDERED: ATENOLOL 50 MG TAB PO ONE (15:45)
[2017-10-27 16:59] VITALS: BP 130/64; PULSE 76; RESP 16; TEMP 98.9; O2SAT 99
--- NOTE | 2017-10-28 15:41 | EKG ---
Date Performed: 10/27/2017 Time Performed: 06:38:54 PTAGE: 42 years EKG: SINUS BRADYCARDIA NONSPECIFIC T-WAVE ABNORMALITY Since previous tracing, no significant gin nge noted BORDERLINE ECG PREVIOUS TRACING : 09/02/2017 13.07 DOCTOR: Korina Gaviria Interpretating Date/Time 10/28/2017 15:40:31
== END 2017-10-27 18:04 | disposition home or self-care (01) ==
LOC: NEPC 05:16 → NEPJ 18:04
DX: F31.60 Bipolar disorder, current episode mixed, unspecified (principal); R94.31 Abnormal electrocardiogram [ECG] [EKG]; R07.9 Chest pain, unspecified; F90.9 Attention-deficit hyperactivity disorder, unspecified type; M32.9 Systemic lupus erythematosus, unspecified; M79.7 Fibromyalgia; I10 Essential (primary) hypertension; I25.2 Old myocardial infarction; Z72.0 Tobacco use
CPT/HCPCS: 80053; 80307; 81001; 84443; 84484; 84703; 85025; 93005; 99284

== ENCOUNTER 2017-11-29 22:19 | Emergency (ER) | payer MEDICAID ==
[~2017-11-29 22:19] MED LIST changes: +FOLI1TAB6 PO; +HYDR200T3 PO; -KETO10 PO; +Methotrexate IM; -OXYC1TAB63 PO; +PANT40TA3 PO; +POLY17S PO; -PRED20 PO; -ZANT150T2 PO
[2017-11-29 22:31] VITALS: BP 141/78; PULSE 68; RESP 16; TEMP 98; O2SAT 98
[2017-11-29] MEDS ORDERED: METH25IN13 IM (22:31)
[2017-11-29] MEDS ORDERED: LITH150C PO (22:31)
[2017-11-29] MEDS ORDERED: ORPHENADRINE INJ 60 MG/2 ML AMP IM ONE (22:45)
[2017-11-29] MEDS ORDERED: DEXAMETHASONE SOD PHOS 4 MG/ML VIAL IM ONE (22:45)
[2017-11-29] MEDS ORDERED: KETOROLAC TROMETHAMINE 60 MG/2 ML (IM) VIAL IM ONE (22:45)
[2017-11-29] MEDS ORDERED: CYCL10TA PO (22:47)
[2017-11-29] MEDS ORDERED: MOBI15TA PO (22:47)
--- NOTE | 2017-11-29 22:47 | PD ---
HPI Chief Complaint: Pain: Acute or Chronic Time Seen by Provider: 22:27 Travel History International Travel<30 days: No Contact w/Intl Traveler<30days: No Traveled to known affect area: No History of Present Illness HPI 42-year-old female complains of low back pain. Patient has history chronic low back pain. Patient was seen by personal physician and pain management and had an MRI done 6 months ago. Patient states that she has has been taking pain medication intermittently for low back pain. Patient states that she has increased and low back pain since yesterday. Patient states the pain is severe pain localized to low back area. Patient states the pain radiates to the lower extremity. Patient denies any bladder or bowel control problem. Patient denies any focal weakness or numbness of lower extremity. Patient denies abdominal pain. Patient denies any fever chills. Patient denies any recent injury. On a scale from 1-10 the pain is a 10. PFSH Past Medical History Hx Anticoagulant Therapy: No ADHD: Yes Arthritis: Yes (RA) Autoimmune Disease: Yes (LUPUS) Bipolar Disorder: Yes Anxiety: Yes Depression: Yes Heart Rhythm Problems: No Cancer: Yes (DOESNT KNOW WHAT KIND SAYS NECK) Cardiac Catheterization: Yes Cardiovascular Problems: Yes High Cholesterol: No Chest Pain: No Congestive Heart Failure: No Coronary Artery Disease: Yes Diabetes: No Diminished Hearing: No Endocrine: Yes Fibromyalgia: Yes Gastrointestinal Disorders: No Genitourinary: No Hypertension: Yes Immune Disorder: Yes (LUPUS) Implanted Vascular Access Dvce: Yes Musculoskeletal: No Neurologic: No Psychiatric: Yes Respiratory: No Immunizations Current: Yes Myocardial Infarction: Yes (2009) Thyroid Disease: Yes Ulcer: Yes ?: Not Menopausal: No : 5 Para: 3 Miscarriage: 2 Ovarian Cysts: Yes Tubal Ligation: Yes Past Surgical History Abdominal Surgery: Yes (GASTRIC BYPASS) Body Medical Devices: HEART STENT Coronary Stent: Yes (X1) Hysterectomy: Yes Social History Alcohol Use: No Tobacco Use: Yes Substance Use: Yes (Admits to Cannabis a couple of days ago. ) Allergies-Medications (Allergen,Severity, Reaction): Coded Allergies: latex (Unverified Allergy, Severe, Anaphylaxis, 11/29/17) tramadol (Unverified Allergy, Severe, "throat closes", 11/29/17) lisinopril (Unverified Allergy, Mild, Hives, 11/29/17) metronidazole (Unverified Allergy, Mild, N&V, 11/29/17) morphine (Unverified Allergy, Mild, Seizure, 11/29/17) Reported Meds & Prescriptions Reported Meds & Active Scripts Active Reported [place] Carbonate 150 Mg Cap 150 Mg PO DAILY Methotrexate Inj 25 Mg/Ml Inj 0.6 Ml IM WEEKLY Pantoprazole (Pantoprazole Sodium) 40 Mg Tab 40 Mg PO BID Hydroxychloroquine (Hydroxychloroquine Sulfate) 200 Mg Tab 200 Mg PO BID Takw with food Folic Acid 1 Mg Tablet 1 Mg PO DAILY Polyethylene Glycol 3350 Powder (Polyethylene Glycol) 17 Gram Pow 17 Gm PO DAILY Gabapentin 300 Mg Cap 300 Mg PO TID Lamictal (Lamotrigine) 200 Mg Tab 200 Mg PO DAILY Xanax (Alprazolam) 0.5 Mg Tab 1 Mg PO QID PRN Atenolol 50 Mg Tab 50 Mg PO DAILY Review of Systems General / Constitutional: No: Fever Eyes: No: Visual changes HENT: No: Headaches Cardiovascular: No: Chest Pain or Discomfort Respiratory: No: Shortness of Breath Gastrointestinal: No: Abdominal Pain Genitourinary: No: Dysuria Musculoskeletal: No: Pain Skin: No Rash Neurologic: No: Weakness Psychiatric: No: Depression Endocrine: No: Polydipsia Hematologic/Lymphatic: No: Easy Bruising Physical Exam Narrative GENERAL: Well-nourished, well-developed patient. SKIN: Focused skin assessment warm/dry. HEAD: Normocephalic. EYES: No scleral icterus. No injection or drainage. NECK: Supple, trachea midline. No JVD or lymphadenopathy. CARDIOVASCULAR: Regular rate and rhythm without murmurs, gallops, or rubs. RESPIRATORY: Breath sounds equal bilaterally. No accessory muscle use. GASTROINTESTINAL: Abdomen soft, non-tender, nondistended. MUSCULOSKELETAL: No cyanosis, or edema. BACK: Patient has moderate tenderness on palpation lumbar area, without obvious deformity. No CVA tenderness. Neurologic exam normal. Data Data Last Documented VS Vital Signs Date Time Temp Pulse Resp B/P (MAP) Pulse Ox O2 Delivery O2 Flow Rate FiO2 11/29/17 22:31 98.0 68 16 141/78 (99) 98 Orders Orders Ketorolac Inj (Toradol Inj) (11/29/17 22:45) Orphenadrine Inj (Norflex Inj) (11/29/17 22:45) Dexamethasone Inj (Decadron Inj) (11/29/17 22:45) MDM Medical Decision Making Medical Screen Exam Complete: Yes Emergency Medical Condition: Yes Differential Diagnosis Differential diagnosis including acute exacerbation of back pain Narrative Course 42-year-old female with acute exacerbation of low back pain. Toradol 60 mg IM. Decadron 8 mg IM. Norflex 60 mg IM. Diagnosis Primary Impression: Acute exacerbation of chronic low back pain Patient Instructions: General Instructions Additional Instructions: Take medications as directed. Follow-up with personal physician and orthopedist. Moist heat to the back. Med/Other Pt SpecificInfo: Prescription(s) given Scripts Cyclobenzaprine (Flexeril) 10 Mg Tab 10 MG PO TID for Muscle Spasm, #60 TAB 0 Refills Prov: Vega Cazares MD 11/29/17 Meloxicam (Mobic) 15 Mg Tab 15 MG PO DAILY for Pain, #20 TAB 0 Refills Prov: Vega Cazares MD 11/29/17 Disposition: 01 DISCHARGE HOME Condition: Stable Vega Cazares MD Nov 29, 2017 22:47
== END 2017-11-29 23:45 | disposition home or self-care (01) ==
LOC: NEPD 22:19
DX: M54.5 Low back pain (principal); G89.29 Other chronic pain; M06.9 Rheumatoid arthritis, unspecified; F90.9 Attention-deficit hyperactivity disorder, unspecified type; F31.9 Bipolar disorder, unspecified; I25.10 Atherosclerotic heart disease of native coronary artery without angina pectoris; M79.7 Fibromyalgia; M32.9 Systemic lupus erythematosus, unspecified; Z72.0 Tobacco use
CPT/HCPCS: 96372; 99283; J1100; J1885; J2360

== ENCOUNTER 2017-12-26 07:53 | Emergency (ER) | payer MEDICAID ==
[~2017-12-26] VITALS: Ht 160 cm; Wt 60.0 kg
[~2017-12-26 07:53] MED LIST changes: +CYCL10TA PO; -LAMO25 PO; +LITH150C PO; -LURA80 PO; +METH25IN13 IM; +MOBI15TA PO; -Methotrexate IM; -cogentin
[2017-12-26 07:56] VITALS: BP 139/72; PULSE 70; RESP 18; TEMP 98; O2SAT 100
[2017-12-26] MEDS ORDERED: SODIUM CHLORIDE 0.9% FLUSH 10 ML FLUSH IV FLUSH PRN (08:45)
[2017-12-26] MEDS ORDERED: ONDANSETRON HCL 4 MG/2 ML VIAL IVP ONE (08:45)
--- NOTE | 2017-12-26 08:55 | PD ---
HPI Chief Complaint: GI Complaint Time Seen by Provider: 08:17 Travel History International Travel<30 days: No Contact w/Intl Traveler<30days: No Traveled to known affect area: No History of Present Illness HPI The patient was seen and examined in the presence of the nurse. This patient complains of abdominal pain. Her abdominal pain is rather diffuse. Difficult for her to localize. Duration 2 days. She has nausea and vomiting. Denies fever or diarrhea. She has had a partial hysterectomy. No alleviating factors. No exacerbating factors. PFSH Past Medical History Hx Anticoagulant Therapy: No ADHD: Yes Arthritis: Yes (RA) Autoimmune Disease: Yes (LUPUS) Bipolar Disorder: Yes Anxiety: Yes Depression: Yes Heart Rhythm Problems: No Cancer: Yes (DOESNT KNOW WHAT KIND SAYS NECK) Cardiac Catheterization: Yes Cardiovascular Problems: Yes (DC 2009) High Cholesterol: No Chest Pain: No Congestive Heart Failure: No Coronary Artery Disease: Yes Diabetes: No Diminished Hearing: No Endocrine: Yes Fibromyalgia: Yes Gastrointestinal Disorders: No Genitourinary: No Hypertension: Yes Immune Disorder: Yes (LUPUS) Implanted Vascular Access Dvce: Yes Musculoskeletal: No Neurologic: No Psychiatric: Yes Respiratory: No Immunizations Current: Yes Myocardial Infarction: Yes (2009) Thyroid Disease: Yes Ulcer: Yes ?: Not Menopausal: No : 5 Para: 3 Miscarriage: 2 Ovarian Cysts: Yes Tubal Ligation: Yes Past Surgical History Abdominal Surgery: Yes (GASTRIC BYPASS) Body Medical Devices: HEART STENT Coronary Stent: Yes (X1) Hysterectomy: Yes Social History Alcohol Use: No Tobacco Use: Yes Substance Use: Yes (Admits to Cannabis a couple of days ago. ) Allergies-Medications (Allergen,Severity, Reaction): Coded Allergies: latex (Verified Allergy, Severe, Anaphylaxis, 12/26/17) tramadol (Verified Allergy, Severe, "throat closes", 12/26/17) lisinopril (Verified Allergy, Mild, Hives, 12/26/17) metronidazole (Verified Allergy, Mild, N&V, 12/26/17) morphine (Verified Allergy, Mild, Seizure, 12/26/17) Reported Meds & Prescriptions Reported Meds & Active Scripts Active Flexeril (Cyclobenzaprine HCl) 10 Mg Tab 10 Mg PO TID Mobic (Meloxicam) 15 Mg Tab 15 Mg PO DAILY Reported [place] Carbonate 150 Mg Cap 150 Mg PO DAILY Methotrexate Inj 25 Mg/Ml Inj 0.6 Ml IM WEEKLY Pantoprazole (Pantoprazole Sodium) 40 Mg Tab 40 Mg PO BID Hydroxychloroquine (Hydroxychloroquine Sulfate) 200 Mg Tab 200 Mg PO BID Takw with food Folic Acid 1 Mg Tablet 1 Mg PO DAILY Polyethylene Glycol 3350 Powder (Polyethylene Glycol) 17 Gram Pow 17 Gm PO DAILY Gabapentin 300 Mg Cap 300 Mg PO TID Lamictal (Lamotrigine) 200 Mg Tab 200 Mg PO DAILY Xanax (Alprazolam) 0.5 Mg Tab 1 Mg PO QID PRN Atenolol 50 Mg Tab 50 Mg PO DAILY Review of Systems General / Constitutional: No: Fever Eyes: No: Visual changes HENT: No: Headaches Cardiovascular: No: Chest Pain or Discomfort Respiratory: No: Shortness of Breath Gastrointestinal: Positive: Nausea, Vomiting, Abdominal Pain Genitourinary: No: Dysuria Musculoskeletal: Positive: Pain Skin: No Rash Neurologic: No: Weakness Psychiatric: No: Depression Endocrine: No: Polydipsia Hematologic/Lymphatic: No: Easy Bruising Physical Exam Narrative GENERAL: Well-nourished, well-developed patient with abdominal pain SKIN: Focused skin assessment reveals no rash and nodules. Skin is Warm and dry. HEAD: Atraumatic. Normocephalic. EYES: Pupils equal and round. No scleral icterus. No injection or drainage. ENT: No nasal bleeding or discharge. Mucous membranes pink and moist. NECK: Trachea midline. No JVD. CARDIOVASCULAR: Regular rate and rhythm. No murmur appreciated. RESPIRATORY: No accessory muscle use. Clear to auscultation. Breath sounds equal bilaterally. GASTROINTESTINAL: Abdomen soft, diffusely tender without rebound or guarding, nondistended. Hepatic and splenic margins not palpable. MUSCULOSKELETAL: No obvious deformities. No clubbing. No cyanosis. No edema. NEUROLOGICAL: Awake and alert. No obvious cranial nerve deficits. Motor grossly within normal limits. Normal speech. PSYCHIATRIC: Anxious mood and affect; insight and judgment seems a bit reduced due to bipolar and anxiety . Data Data Last Documented VS Vital Signs Date Time Temp Pulse Resp B/P (MAP) Pulse Ox O2 Delivery O2 Flow Rate FiO2 12/26/17 07:56 98.0 70 18 139/72 (94) 100 Orders Orders Electrocardiogram (12/26/17 ) Complete Blood Count With Diff (12/26/17 08:31) Comprehensive Metabolic Panel (12/26/17 08:31) Lipase (12/26/17 08:31) Urinalysis - C+S If Indicated (12/26/17 08:31) Ct Abd/Pel W Iv Contrast(Rout) (12/26/17 08:31) Iv Access Insert/Monitor (12/26/17 08:31) NPO (12/26/17 08:31) Ondansetron Inj (Zofran Inj) (12/26/17 08:45) Sodium Chloride 0.9% Flush (Ns Flush) (12/26/17 08:45) Iohexol 350 Inj (Omnipaque 350 Inj) (12/26/17 09:41) Oxycodone-Acetamin 5-325 Mg (Percocet (12/26/17 12:00) Labs Laboratory Tests Test 12/26/17 08:20 White Blood Count 5.3 TH/MM3 Red Blood Count 4.01 MIL/MM3 Hemoglobin 13.5 GM/DL Hematocrit 39.0 % Mean Corpuscular Volume 97.2 FL Mean Corpuscular Hemoglobin 33.7 PG Mean Corpuscular Hemoglobin Concent 34.6 % Red Cell Distribution Width 13.4 % Platelet Count 296 TH/MM3 Mean Platelet Volume 8.8 FL Neutrophils (%) (Auto) 75.4 % Lymphocytes (%) (Auto) 15.4 % Monocytes (%) (Auto) 8.6 % Eosinophils (%) (Auto) 0.3 % Basophils (%) (Auto) 0.3 % Neutrophils # (Auto) 4.0 TH/MM3 Lymphocytes # (Auto) 0.8 TH/MM3 Monocytes # (Auto) 0.5 TH/MM3 Eosinophils # (Auto) 0.0 TH/MM3 Basophils # (Auto) 0.0 TH/MM3 CBC Comment AUTO DIFF Differential Comment AUTO DIFF CONFIRMED Platelet Estimate NORMAL Platelet Morphology Comment NORMAL Ovalocytes 1+ Urine Color YELLOW Urine Turbidity CLEAR Urine pH 5.5 Urine Specific [place] 1.037 Urine Protein 30 mg/dL Urine Glucose (UA) NEG mg/dL Urine Ketones 10 mg/dL Urine Occult Blood NEG Urine Nitrite NEG Urine Bilirubin NEG Urine Urobilinogen 2.0 MG/DL Urine Leukocyte Esterase NEG Urine RBC 2 /hpf Urine WBC 1 /hpf Urine Squamous Epithelial Cells 1 /hpf Urine Mucus MANY /lpf Microscopic Urinalysis Comment CULT NOT INDICATED Blood Urea Nitrogen 15 MG/DL Creatinine 0.88 MG/DL Random Glucose 97 MG/DL Total Protein 9.0 GM/DL Albumin 4.7 GM/DL Calcium Level 10.2 MG/DL Alkaline Phosphatase 101 U/L Aspartate Amino Transf (AST/SGOT) 29 U/L Alanine Aminotransferase (ALT/SGPT) 32 U/L Total Bilirubin 0.9 MG/DL Sodium Level 139 MEQ/L Potassium Level 4.0 MEQ/L Chloride Level 106 MEQ/L Carbon Dioxide Level 25.4 MEQ/L Anion Gap 8 MEQ/L Estimat Glomerular Filtration Rate 86 ML/MIN Lipase 225 U/L [facility] Medical Decision Making Medical Screen Exam Complete: Yes Emergency Medical Condition: Yes Medical Record Reviewed: Yes Differential Diagnosis Colitis, appendicitis, irritable bowel syndrome Narrative Course I have reviewed the patient's electronic medical record. Patient is having diffuse abdominal pain, difficult to localize. I have ordered a abdominal pain workup to include labs and urine and CT She has no uterus IV Zofran given Lab studies and urine are normal CT scan negative for acute process On recheck she is comfortable and doing well I gave her 1 pain pill Diagnosis Primary Impression: Abdominal pain Qualified Codes: R10.84 - Generalized abdominal pain Additional Instructions: The patient was advised to follow up with their physician and return if they worsen. Med/Other Pt SpecificInfo: Other Disposition: 01 DISCHARGE HOME Condition: Stable Marlon Jo MD Dec 26, 2017 08:55
[2017-12-26 08:59] LABS: BASOPHIL % 0.3 % (0.0-2.0); EOSINOPHIL % 0.3 % (0.0-4.0); HEMOGLOBIN 13.5 GM/DL (11.6-15.3); LYMPH % 15.4 % (9.0-44.0); LYMPHOCYTE # 0.8 TH/MM3 (1.0-4.8); MEAN CELL VOLUME 97.2 FL (80.0-100.0); MEAN CORPUSCULAR HEMOGLOBIN 33.7 PG (27.0-34.0); MEAN CORPUSCULAR HGB CONC 34.6 % (32.0-36.0); MEAN PLATELET VOLUME 8.8 FL (7.0-11.0); MONO % 8.6 % (0.0-8.0); MONOCYTE # 0.5 TH/MM3 (0-0.9); NEUT % 75.4 % (16.0-70.0); PLATELET COUNT 296 TH/MM3 (150-450); RED BLOOD COUNT 4.01 MIL/MM3 (4.00-5.30); RED CELL DISTRIBUTION WIDTH 13.4 % (11.6-17.2); WHITE BLOOD COUNT 5.3 TH/MM3 (4.0-11.0)
[2017-12-26 09:10] LABS: BILIRUBIN, URINE NEG (NEG); BLOOD, URINE NEG (NEG); GLUCOSE,URINE NEG (NEG); KETONE, URINE 10 mg/dL (NEG); MUCUS URINE MANY /lpf (OCC); NITRITE,URINE NEG (NEG); PH, URINE 5.5 (5.0-8.5); SQUAMOUS EPITHELIAL CELL URINE 1 /hpf (0-5); URINE COLOR YELLOW (YELLW/STRAW); URINE LEUKOCYTE ESTERASE NEG (NEG)
[2017-12-26 09:17] LABS: ALBUMIN 4.7 GM/DL (3.4-5.0); AST (GOT) 29 U/L (15-37); BICARBONATE 25.4 MEQ/L (21.0-32.0); BLOOD UREA NITROGEN 15 MG/DL (7-18); CALCIUM 10.2 MG/DL (8.5-10.1); CHLORIDE 106 MEQ/L (98-107); CREATININE 0.88 MG/DL (0.50-1.00); GLOMERULAR FILTRATION RATE 86 ML/MIN (>89); GLUCOSE,RANDOM 97 MG/DL (74-106); SODIUM (NA) 139 MEQ/L (136-145)
[2017-12-26 09:18] LABS: ALT (GPT) 32 U/L (10-53)
[2017-12-26 09:20] LABS: ALKALINE PHOSPHATASE 101 U/L (45-117); TOTAL BILIRUBIN ADULT 0.9 MG/DL (0.2-1.0)
[2017-12-26] MEDS ORDERED: IOHEXOL 350 MG/ML 10 ML VIAL (for RAD DIAG) IVCONTRAST ONE (09:41)
--- NOTE | 2017-12-26 09:56 | RADRPT ---
EXAM DATE/TIME: 12/26/2017 09:25 [place] COMPARISON: CT ABDOMEN & PELVIS W CONTRAST, July 21, 2017, 9:54. INDICATIONS : Generalized abdominal pain. IV CONTRAST: 96 cc Omnipaque 350 (iohexol) IV ORAL CONTRAST: No oral contrast ingested. RADIATION DOSE: 6.64 CTDIvol (mGy) MEDICAL HISTORY : Hypertension. Cardiovascular disease SURGICAL HISTORY : Gastric bypass. Hysterectomy. ENCOUNTER: Initial ACUITY: 2 days PAIN SCALE: 4/10 LOCATION: Bilateral abdomen TECHNIQUE: Volumetric scanning of the abdomen and pelvis was performed. Using automated exposure control and ad justment of the mA and/or kV according to patient size, radiation dose was kept as low as reasonably achievable to obtain optimal diagnostic quality images. DICOM format image data is available electro nically for review and comparison. FINDINGS: Comparison is July 2017. Lung bases clear. Mild fatty liver. Postoperative gastric bypass surgery. No focal abnormalities in the spleen, adrenals, kidneys or pancreas. No calcified gallstones or bilia ry ductal dilatation. No free fluid. No bowel obstruction. No adenopathy. CONCLUSION: 1. No acute findings. Mild fatty liver. Previous gastric bypass surgery. No inflammatory changes iden tified within the abdomen and pelvis. No bowel obstruction, free air or free fluid. Son Duque MD on December 26, 2017 at 9:48 Board Certified Radiologist. This report was verified electronically.
[2017-12-26 09:57] LABS: OVALOCYTES 1+ (NORMAL)
[2017-12-26] MEDS ORDERED: oxyCODONE/ACETAMINOPHEN 5 MG/325 MG TAB PO ONE (12:00)
--- NOTE | 2017-12-27 18:20 | EKG ---
Date Performed: 12/26/2017 Time Performed: 08:11:43 PTAGE: 42 years EKG: SINUS BRADYCARDIA BORDERLINE ECG Since PREVIOUS TRACING , no significant change noted PREVIOUS TRACIN10/27/2017 06.38 DOCTOR: Eric Schafer Interpretating Date/Time 12/27/2017 18:17:31
== END 2017-12-26 12:14 | disposition home or self-care (01) ==
LOC: NEPC 07:53 → NETRI 12:14
DX: R10.84 Generalized abdominal pain (principal); I10 Essential (primary) hypertension; M32.9 Systemic lupus erythematosus, unspecified; M06.9 Rheumatoid arthritis, unspecified; F12.90 Cannabis use, unspecified, uncomplicated; Z72.0 Tobacco use
CPT/HCPCS: 74177; 80053; 81001; 83690; 85025; 93005; 96374; 99285; J2405; Q9967

== ENCOUNTER 2018-01-19 09:41 | Emergency (ER) | payer MEDICAID ==
[~2018-01-19] VITALS: Ht 160 cm; Wt 60.0 kg
[2018-01-19 09:49] VITALS: BP 123/71; PULSE 74; RESP 16; TEMP 98.1; O2SAT 99
[2018-01-19] MEDS ORDERED: SODIUM CHLOR 0.9% 1000 ML INJ 1,000 ML IV ONE (10:12)
[2018-01-19] MEDS ORDERED: PANTOPRAZOLE SODIUM 40 MG VIAL IV PUSH ONE (10:15)
[2018-01-19] MEDS ORDERED: ONDANSETRON HCL 4 MG/2 ML VIAL IV PUSH ONE (10:15)
[2018-01-19] MEDS ORDERED: SODIUM CHLORIDE 0.9% FLUSH 10 ML FLUSH IVF PRN (10:15)
--- NOTE | 2018-01-19 10:29 | PD ---
HPI Chief Complaint: GI Complaint Time Seen by Provider: 10:03 Travel History International Travel<30 days: No Contact w/Intl Traveler<30days: No Traveled to known affect area: No History of Present Illness HPI Patient is a 42-year-old female presenting to emerge from for evaluation of abdominal pain, nausea, vomiting. Patient states she has lost 30 pounds in the last month. She reports a history of gastritis and ulcers and states that her insurance will cover Protonix. She also reports that due to nausea vomiting she can keep her psychiatric meds down which include Lamictal, Xanax and lithium. Patient reports that she was able to keep a dose of those medications down last night. She reports her pain is a 4 out of 10 and cramping in nature. She denies any diarrhea, fever, shortness of breath, chest pain. Symptom onset was years ago, she is followed by lilliam IBARRA Dr.. Patient denies any suicidal homicidal ideations. Symptoms appear mild in nature. Patient was initially seen resting on her cell phone. PFSH Past Medical History Hx Anticoagulant Therapy: No ADHD: Yes Arthritis: Yes (RA) Autoimmune Disease: Yes (LUPUS) Bipolar Disorder: Yes Anxiety: Yes Depression: Yes Cancer: Yes (DOESNT KNOW WHAT KIND SAYS NECK) Cardiac Catheterization: Yes Coronary Artery Disease: Yes Fibromyalgia: Yes Hypertension: Yes Immunizations Current: Yes Myocardial Infarction: Yes (2009) Thyroid Disease: Yes Ulcer: Yes ?: Not : 5 Para: 3 Miscarriage: 2 Ovarian Cysts: Yes Tubal Ligation: Yes Past Surgical History Abdominal Surgery: Yes (GASTRIC BYPASS) Coronary Stent: Yes (X1) Hysterectomy: Yes Social History Alcohol Use: No Tobacco Use: Yes Substance Use: Yes (Admits to Cannabis a couple of days ago. ) Allergies-Medications (Allergen,Severity, Reaction): Coded Allergies: latex (Verified Allergy, Severe, Anaphylaxis, 12/26/17) tramadol (Verified Allergy, Severe, "throat closes", 12/26/17) lisinopril (Verified Allergy, Mild, Hives, 12/26/17) metronidazole (Verified Allergy, Mild, N&V, 12/26/17) morphine (Verified Allergy, Mild, Seizure, 12/26/17) Reported Meds & Prescriptions Reported Meds & Active Scripts Active Carafate Liq (Sucralfate) 1 Gm/10 Ml Susp 1 Gm PO TID on empty stomach Flexeril (Cyclobenzaprine HCl) 10 Mg Tab 10 Mg PO TID Mobic (Meloxicam) 15 Mg Tab 15 Mg PO DAILY Reported [place] Carbonate 150 Mg Cap 150 Mg PO DAILY Methotrexate Inj 25 Mg/Ml Inj 0.6 Ml IM WEEKLY Pantoprazole (Pantoprazole Sodium) 40 Mg Tab 40 Mg PO BID Hydroxychloroquine (Hydroxychloroquine Sulfate) 200 Mg Tab 200 Mg PO BID Takw with food Folic Acid 1 Mg Tablet 1 Mg PO DAILY Polyethylene Glycol 3350 Powder (Polyethylene Glycol) 17 Gram Pow 17 Gm PO DAILY Gabapentin 300 Mg Cap 300 Mg PO TID Lamictal (Lamotrigine) 200 Mg Tab 200 Mg PO DAILY Xanax (Alprazolam) 0.5 Mg Tab 1 Mg PO QID PRN Atenolol 50 Mg Tab 50 Mg PO DAILY Review of Systems Except as stated in HPI: all other systems reviewed are Neg Gastrointestinal: Positive: Nausea, Vomiting, Abdominal Pain Psychiatric: No: Suicidal Ideations, Homicidal Ideation Physical Exam Narrative GENERAL: Well-developed, well-nourished, well-appearing female. Presenting in no acute distress. SKIN: Warm and dry. HEAD: Atraumatic. Normocephalic. EYES: Pupils equal and round. No scleral icterus. No injection or drainage. ENT: No nasal bleeding or discharge. Mucous membranes pink and moist. NECK: Trachea midline. No JVD. CARDIOVASCULAR: Regular rate and rhythm. RESPIRATORY: No accessory muscle use. Clear to auscultation. Breath sounds equal bilaterally. GASTROINTESTINAL: Abdomen soft, non-tender, nondistended. Hepatic and splenic margins not palpable. Positive bowel sounds, no rebound, no guarding. MUSCULOSKELETAL: Extremities without clubbing, cyanosis, or edema. No obvious deformities. NEUROLOGICAL: Awake and alert. No obvious cranial nerve deficits. Motor grossly within normal limits. Five out of 5 muscle strength in the arms and legs. Normal speech. PSYCHIATRIC: Appropriate mood and affect; insight and judgment normal. Data Data Last Documented VS Vital Signs Date Time Temp Pulse Resp B/P (MAP) Pulse Ox O2 Delivery O2 Flow Rate FiO2 01/19/18 09:49 98.1 74 16 123/71 (88) 99 Orders Orders Complete Blood Count With Diff (01/19/18 10:12) Comprehensive Metabolic Panel (01/19/18 10:12) Lipase (4/9/18 10:12) Iv Access Insert/Monitor (01/19/18 10:12) Ecg Monitoring (01/19/18 10:12) Oximetry (01/19/18 10:12) Ondansetron Inj (Zofran Inj) (01/19/18 10:15) Pantoprazole Inj (Protonix Inj) (01/19/18 10:15) Sodium Chlor 0.9% 1000 Ml Inj (Ns 1000 M (01/19/18 10:12) Sodium Chloride 0.9% Flush (Ns Flush) (01/19/18 10:15) Psych Screen (01/19/18 11:36) Sucralfate Liq (Carafate Liq) (01/19/18 12:15) Labs Laboratory Tests Test 01/19/18 10:30 White Blood Count 4.2 TH/MM3 Red Blood Count 3.54 MIL/MM3 Hemoglobin 11.8 GM/DL Hematocrit 34.8 % Mean Corpuscular Volume 98.2 FL Mean Corpuscular Hemoglobin 33.4 PG Mean Corpuscular Hemoglobin Concent 34.0 % Red Cell Distribution Width 13.8 % Platelet Count 281 TH/MM3 Mean Platelet Volume 8.8 FL Neutrophils (%) (Auto) 56.6 % Lymphocytes (%) (Auto) 34.3 % Monocytes (%) (Auto) 7.0 % Eosinophils (%) (Auto) 0.8 % Basophils (%) (Auto) 1.3 % Neutrophils # (Auto) 2.4 TH/MM3 Lymphocytes # (Auto) 1.4 TH/MM3 Monocytes # (Auto) 0.3 TH/MM3 Eosinophils # (Auto) 0.0 TH/MM3 Basophils # (Auto) 0.1 TH/MM3 CBC Comment DIFF FINAL Differential Comment Blood Urea Nitrogen 17 MG/DL Creatinine 0.88 MG/DL Random Glucose 67 MG/DL Total Protein 7.8 GM/DL Albumin 4.0 GM/DL Calcium Level 9.6 MG/DL Alkaline Phosphatase 82 U/L Aspartate Amino Transf (AST/SGOT) 23 U/L Alanine Aminotransferase (ALT/SGPT) 25 U/L Total Bilirubin 0.7 MG/DL Sodium Level 143 MEQ/L Potassium Level 4.2 MEQ/L Chloride Level 108 MEQ/L Carbon Dioxide Level 28.1 MEQ/L Anion Gap 7 MEQ/L Estimat Glomerular Filtration Rate 86 ML/MIN Lipase 126 U/L MDM Medical Decision Making Medical Screen Exam Complete: Yes Emergency Medical Condition: Yes Interpretation(s) Vital Signs Date Time Temp Pulse Resp B/P (MAP) Pulse Ox O2 Delivery O2 Flow Rate FiO2 01/19/18 09:49 98.1 74 16 123/71 (88) 99 Differential Diagnosis Gastritis versus peptic ulcer disease versus metabolic abnormality versus other Narrative Course Patient is a 42-year-old female that presented to emergency room for evaluation of abdominal pain, nausea, vomiting. Her vital signs are stable, she is well- appearing. She appears calm and is talking on her cell phone. Labs ordered and pending. Patient was given IV fluids, Protonix, Zofran. Labs reviewed, no acute findings identified. I went in to discuss labs with patient and she then reported that she states "I feel like I could have a nervous breakdown". Psych screen ordered. Patient is medically cleared. Patient will be given dose of Carafate now. She states that his work for her in the past. She was given a prescription as well. Patient reports that she was going to follow-up with her normal psychiatrist. She no longer wants to be evaluated by psych here. He denied any suicidal ideations once again. Patient stable for discharge. Patient is tolerating oral fluids in the emergency department. 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
[2018-01-19 10:57] LABS: AUTOMATED NEUTROPHIL # 2.4 TH/MM3 (1.8-7.7); BASOPHIL # 0.1 TH/MM3 (0-0.2); BASOPHIL % 1.3 % (0.0-2.0); EOSINOPHIL % 0.8 % (0.0-4.0); HEMATOCRIT 34.8 % (35.0-46.0); HEMOGLOBIN 11.8 GM/DL (11.6-15.3); LYMPH % 34.3 % (9.0-44.0); LYMPHOCYTE # 1.4 TH/MM3 (1.0-4.8); MEAN CELL VOLUME 98.2 FL (80.0-100.0); MEAN CORPUSCULAR HEMOGLOBIN 33.4 PG (27.0-34.0); MEAN PLATELET VOLUME 8.8 FL (7.0-11.0); MONOCYTE # 0.3 TH/MM3 (0-0.9); NEUT % 56.6 % (16.0-70.0); PLATELET COUNT 281 TH/MM3 (150-450); RED BLOOD COUNT 3.54 MIL/MM3 (4.00-5.30); RED CELL DISTRIBUTION WIDTH 13.8 % (11.6-17.2); WHITE BLOOD COUNT 4.2 TH/MM3 (4.0-11.0)
[2018-01-19 11:26] LABS: ALT (GPT) 25 U/L (10-53); AST (GOT) 23 U/L (15-37); BICARBONATE 28.1 MEQ/L (21.0-32.0); BLOOD UREA NITROGEN 17 MG/DL (7-18); CALCIUM 9.6 MG/DL (8.5-10.1); CHLORIDE 108 MEQ/L (98-107); CREATININE 0.88 MG/DL (0.50-1.00); GLOMERULAR FILTRATION RATE 86 ML/MIN (>89); GLUCOSE,RANDOM 67 MG/DL (74-106); SODIUM (NA) 143 MEQ/L (136-145)
[2018-01-19 11:28] LABS: ALKALINE PHOSPHATASE 82 U/L (45-117); TOTAL BILIRUBIN ADULT 0.7 MG/DL (0.2-1.0); TOTAL PROTEIN 7.8 GM/DL (6.4-8.2)
[2018-01-19] MEDS ORDERED: CARA1SUS3 PO (12:06)
[2018-01-19] MEDS ORDERED: SUCRALFATE 1 GM/10 ML CUP PO ONE (12:15)
[2018-01-19 13:00] VITALS: BP 120/72; PULSE 72; RESP 18; O2SAT 99
== END 2018-01-19 14:00 | disposition home or self-care (01) ==
LOC: NEPD 09:41
DX: K29.70 Gastritis, unspecified, without bleeding (principal); I10 Essential (primary) hypertension; I25.10 Atherosclerotic heart disease of native coronary artery without angina pectoris; M79.7 Fibromyalgia; M32.9 Systemic lupus erythematosus, unspecified; F12.90 Cannabis use, unspecified, uncomplicated; Z72.0 Tobacco use
CPT/HCPCS: 80053; 83690; 85025; 96361; 96374; 96375; 99284; C9113; J2405; J7030